=== PATIENT | female | born 1995 | race African-American/Black ===

== ENCOUNTER 2020-03-29 09:38 | Emergency (ER) | payer MEDICAID ==
[~2020-03-29] VITALS: Ht 154.9 cm; Wt 82.0 kg
[2020-03-29 11:29] VITALS: BP 114/80
[2020-03-29] MEDS ORDERED: ACETAMINOPHEN 325MG TABLET PO ONE (11:30)
== END 2020-03-29 11:30 | disposition home or self-care (01) ==
LOC: ER 09:49
DX: H61.21 Impacted cerumen, right ear (principal)
CPT/HCPCS: 99281

== ENCOUNTER 2020-08-21 22:43 | Emergency (ER) | payer SELFPAY ==
[~2020-08-21] VITALS: Ht 154.9 cm; Wt 82.0 kg
[2020-08-21 23:05] VITALS: BP 130/95
[2020-08-21 23:56] LABS: CLARITY URINE CLEAR (CLEAR); COLOR URINE YELLOW (YELLOW); KETONES URINE TRACE (NEGATIVE); LEUKOCYTE ESTERASE URINE NEGATIVE (NEGATIVE); NITRITE URINE NEGATIVE (NEGATIVE); OCCULT BLOOD URINE TRACE (NEGATIVE); PROTEIN URINE NEGATIVE (NEGATIVE); SPECIFIC GRAVITY URINE 1.038 (1.005-1.030)
[2020-08-22 00:55] LABS: HEMOGLOBIN 11.9 g/dL (12.0-16.0); MEAN CORPUSCULAR HEMOGLOBIN 28.5 pg (28.0-32.0); MEAN CORPUSCULAR VOLUME 84.2 fL (81.0-99.0); PLATELET 286 x1000/uL (130-400); RED BLOOD CELL COUNT 4.16 mill/uL (4.2-5.4); RED CELL DISTRIBUTION WIDTH 13.3 % (11.6-14.6)
[2020-08-22 01:02] LABS: CHLORIDE 106 mEq/L (98-107)
== END 2020-08-22 02:32 | disposition home or self-care (01) ==
LOC: ER 22:43
DX: N83.291 Other ovarian cyst, right side (principal)
CPT/HCPCS: 36415; 74176; 80053; 81003; 81025; 85027; 93005; 99285

== ENCOUNTER 2021-10-28 15:48 | Emergency (ER) | payer SELFPAY ==
[~2021-10-28] VITALS: Ht 157.5 cm; Wt 88.0 kg
[2021-10-28 16:02] VITALS: BP 120/94
== END 2021-10-29 01:07 | disposition left against medical advice (07) ==
LOC: ER 15:48
DX: R06.00 Dyspnea, unspecified (principal); Z63.79 Other stressful life events affecting family and household; Z56.6 Other physical and mental strain related to work
CPT/HCPCS: 99281